=== PATIENT | female | born 1975 | race American Indian/Alaskan Native ===

== ENCOUNTER 2018-03-10 10:48 | Emergency (ER) | payer BC ==
[2018-03-10 11:23] VITALS: BP 133/77
--- NOTE | 2018-03-10 12:08 | Emergency Department Report ---
Blank Doc - Documentation Documentation: 42-year-old female with no past medical history reports to the ED with complaints of chest pain. She states when she awoke this morning she is experiencing substernal tightness. Patient also reports shortness of breath, and mild pleuritic chest pain as well. Patient denies cough, fever, leg pain, leg swelling. Patient states she went to an urgent care, was given an aspirin there which patient reports relieved her pain, and told that she needed further evaluation in the ER. On exam vital signs are normal. Patient appears comfortable, in no acute distress. Lungs are clear. No calf tenderness or edema in lower extremities. EKG nonspecific. Will check labs, including troponin and d-dimer, chest x-ray.
[2018-03-10 12:52] LABS: Basophils # (Auto) 0.1 K/mm3 (0.0-0.1); Basophils % (Auto) 0.9 % (0.0-1.8); Eosinophils # (Auto) 0.1 K/mm3 (0.0-0.4); Eosinophils % (Auto) 1.1 % (0.0-4.3); Hematocrit 34.2 % (30.3-42.9); Hemoglobin 11.2 gm/dl (10.1-14.3); Lymphocytes # (Auto) 2.4 K/mm3 (1.2-5.4); Lymphocytes % (Auto) 35.4 % (13.4-35.0); Mean Corpuscular HGB Conc 33 % (30-34); Mean Corpuscular Hemoglobin 25 pg (28-32); Mean Corpuscular Volume 76 fl (79-97); Monocytes # (Auto) 0.4 K/mm3 (0.0-0.8); Monocytes % (Auto) 6.5 % (0.0-7.3); Platelet Count 283 K/mm3 (140-440); Red Blood Count 4.48 M/mm3 (3.65-5.03); Red Cell Distribution Width 15.4 % (13.2-15.2)
[2018-03-10 13:01] LABS: INR 0.94 (0.87-1.13)
[2018-03-10 13:02] LABS: Partial Thromboplastin Time 21.7 Sec. (24.2-36.6)
[2018-03-10 13:13] LABS: BUN/Creatinine Ratio 22; Blood Urea Nitrogen 11 mg/dL (7-17); Calcium 9.2 mg/dL (8.4-10.2); Hemolysis Index 0
--- NOTE | 2018-03-10 13:38 | XRay Report ---
ROUTINE CHEST, TWO VIEWS: HISTORY: chest pain. The trachea, heart, mediastinal contour, lung sterling and bony thorax are unremarkable. IMPRESSION: Unremarkable chest x-ray.
--- NOTE | 2018-03-10 15:03 | Emergency Department Report ---
ED Chest Pain HPI - General Chief Complaint: Chest Pain Stated Complaint: CP Time Seen by Provider: 03/10/18 11:33 Source: patient Mode of arrival: Ambulatory Limitations: No Limitations - History of Present Illness Initial Comments: 42-year-old female with no past medical history reports to the ED with complaints of chest pain. She states when she awoke this morning she is experiencing substernal tightness. Patient also reports shortness of breath, and mild pleuritic chest pain as well. Patient denies cough, fever, leg pain, leg swelling. Patient states she went to an urgent care, was given an aspirin there which patient reports relieved her pain, and told that she needed further evaluation in the ER. On exam vital signs are normal. Patient appears comfortable, in no acute distress. Lungs are clear. No calf tenderness or edema in lower extremities. EKG nonspecific. Will check labs, including troponin and d-dimer, chest x-ray. Pain Location: other (pain primarily along the sternal border and worse with range of motion, deep breath, palpation and it is reproducible) Pain Radiation: none Consistency: intermittent Worsens With: inspiration, palpation - Related Data Previous Rx's Medication Instructions Recorded Last Taken Type Ketorolac [Toradol] 10 mg PO Q6H PRN #10 tablet 03/10/18 Unknown Rx Allergies Allergy/AdvReac Type Severity Reaction Status Date / Time No Known Allergies Allergy Verified 03/10/18 11:18 Heart Score - HEART Score History: Slightly suspicious EKG: Normal Age: < 45 Risk factors: No known risk factors Troponin: < normal limit HEART Score: 0 ED Review of Systems ROS: Stated complaint: CP Other details as noted in HPI Constitutional: denies: chills, fever Eyes: denies: eye pain, eye discharge, vision change ENT: denies: ear pain, throat pain Respiratory: denies: cough, shortness of breath, wheezing Cardiovascular: chest pain. denies: palpitations Endocrine: no symptoms reported Gastrointestinal: denies: abdominal pain, nausea, diarrhea Genitourinary: denies: urgency, dysuria, discharge Musculoskeletal: denies: back pain, joint swelling, arthralgia Skin: denies: rash, lesions Neurological: denies: headache, weakness, paresthesias Psychiatric: denies: anxiety, depression Hematological/Lymphatic: denies: easy bleeding, easy bruising ED Past Medical Hx - Past Medical History Previous Medical History?: No - Surgical History Past Surgical History?: Yes Additional Surgical History: c section - Social History Smoking Status: Never Smoker Substance Use Type: None - Medications Home Medications: Home Medications Medication Instructions Recorded Confirmed Last Taken Type Ketorolac [Toradol] 10 mg PO Q6H PRN #10 tablet 03/10/18 Unknown Rx ED Physical Exam - General Limitations: No Limitations General appearance: alert, in no apparent distress - Head Head exam: Present: atraumatic, normocephalic - Eye Eye exam: Present: normal appearance, PERRL, EOMI - ENT ENT exam: Present: mucous membranes moist. Absent: normal orophraynx, TM's normal bilaterally - Neck Neck exam: Present: normal inspection, full ROM. Absent: tenderness, lymphadenopathy - Respiratory Respiratory exam: Present: normal lung sounds bilaterally, chest wall tenderness (with palpation along the area of the sternal border. Pain is also worse with apposed adduction of the be just muscle Under extended period). Absent: respiratory distress - Cardiovascular Cardiovascular Exam: Present: regular rate, normal rhythm. Absent: systolic murmur, diastolic murmur, rubs, gallop - GI/Abdominal GI/Abdominal exam: Present: soft, normal bowel sounds. Absent: tenderness, guarding, rebound - Extremities Exam Extremities exam: Present: normal inspection - Back Exam Back exam: Present: normal inspection, full ROM. Absent: CVA tenderness (L), paraspinal tenderness, vertebral tenderness - Neurological Exam Neurological exam: Present: alert, oriented X3, CN II-XII intact, normal gait - Psychiatric Psychiatric exam: Present: normal affect, normal mood - Skin Skin exam: Present: warm, dry, intact, normal color. Absent: rash ED Course Vital Signs 03/10/18 11:19 Temperature 99.1 F Pulse Rate 68 Respiratory 16 Rate Blood Pressure 133/77 O2 Sat by Pulse 100 Oximetry - Reevaluation(s) Reevaluation #2: 03/10/18 16:22 The discuss the findings of the CT scan in conjunction with elevated dimer. No evidence of any blood clots. Case was discussed with Dr. Brady. Plan is to use discharge home for the costochondritis with Toradol ED Medical Decision Making - Lab Data Result diagrams: 03/10/18 12:34 03/10/18 12:34 - Medical Decision Making The patient's d-dimer was elevated above 900. Discussed with patient the possible reasons for this finding. Also stressed the need of [address]ogram to evaluate for a PE. She she agreed. Patient was also also given educational material. Upon her request for a better understanding of what a d- dimer Critical care attestation.: If time is entered above; I have spent that time in minutes in the direct care of this critically ill patient, excluding procedure time. ED Disposition Clinical Impression: Costochondral chest pain Disposition: TO HOME OR SELFCARE Is pt being admited?: No Does the pt Need Aspirin: No Condition: Stable Instructions: Chest Pain (ED), Costochondritis (ED) Prescriptions: Ketorolac [Toradol] 10 mg PO Q6H PRN #10 tablet PRN Reason: Pain Referrals: PRIMARY CARE, [Primary Care Provider] - 3-5 Days
--- NOTE | 2018-03-10 16:04 | Cat Scan Report ---
FINAL REPORT PROCEDURE: CT ANGIO CHEST TECHNIQUE: Computerized tomographic angiography of the chest was performed during the IV injection of iodinated nonionic contrast including image processing. The image data was postprocessed using 2-dimensional multiplanar reformatted (MPR) and 3-dimensional (MIP and/or volume rendered) techniques. HISTORY: elevated dimer and chest pain COMPARISON: No prior studies are available for comparison. FINDINGS: Pulmonary outflow tract, right and left main pulmonary arteries and their proximal branches: Clear, no filling defects seen to suggest pulmonary embolus. Pericardium: No evidence of pericardial effusion. Thoracic aorta: No evidence of aortic aneurysm or dissection. Coronary arteries: Are unremarkable. Mediastinum and hilar regions: Nonspecific subcentimeter lymph nodes are visualized. No pathologically enlarged lymph nodes or masses are identified. Lung Goodrich: Calcified nodular density consistent with a granuloma seen in the posterior aspect of the right middle lobe. The lungs otherwise are clear. No infiltrates masses effusions or pneumothorax are visualized Upper abdomen: Calcified granulomas are seen in the spleen which is otherwise unremarkable. No acute abnormalities are seen in the upper abdomen. Subtle density difference appears to be present in the gallbladder. There may be sludge or noncalcified gallstones. Other: No acute bony abnormalities are seen. IMPRESSION: No evidence of pulmonary embolus. Prior granulomatous disease. Possible sludge or noncalcified gallstones in the gallbladder. If clinically indicated gallbladder ultrasound could be obtained for further evaluation.
== END 2018-03-10 16:30 | disposition home or self-care (01) ==
LOC: ED 10:48
DX: R07.89 Other chest pain (principal); R06.02 Shortness of breath
CPT/HCPCS: 36415; 71046; 71275; 80048; 84484; 84703; 85025; 85379; 85610; 85730; 93005; 93010; 99284; Q9967

== ENCOUNTER 2020-06-13 14:45 | Outpatient (CLI) | payer BC | END 2020-06-13 14:46 | disposition home or self-care (01) | LOC: SPVWC 14:45 | PROVIDERS: ATTEND Obstetrics & Gynecology | DX: Z12.31 Encounter for screening mammogram for malignant neoplasm of breast (principal) | CPT/HCPCS: 77067 ==